=== PATIENT | female | born 1930 | race Caucasian/White ===

== ENCOUNTER 2017-01-27 19:18 | Emergency (ER) | payer OTHER ==
[~2017-01-27] VITALS: Ht 157.5 cm; Wt 73.7 kg
[2017-01-27 19:25] VITALS: BP 189/81; PULSE 68; RESP 18; TEMP 97.6; O2SAT 98
[2017-01-27] MEDS ORDERED: traMADol HCL 50 MG TAB PO ONE (19:45)
--- NOTE | 2017-01-27 19:54 | PD ---
HPI Chief Complaint: Fall Time Seen by Provider: 19:33 Travel History International Travel<30 days: No Contact w/Intl Traveler<30days: No Traveled to known affect area: No History of Present Illness HPI 86-year-old female here for evaluation of left wrist and left knee pain after mechanical fall that occurred about 45 minutes prior to arrival. The patient arrives via private vehicle with her family. She was in the garage doing laundry when she tripped and fell to the ground. She denies head injury or LOC. She is mainly having pain in her left wrist, but also has some pain in her left knee. She was able to ambulate after the fall. She denies neck or back pain. No pain in any other joint or extremity. Left wrist pain is moderate, constant, worse with movement and palpation. She is right-handed. PFSH Past Medical History Hx Anticoagulant Therapy: Yes Cardiovascular Problems: Yes High Cholesterol: Yes Diabetes: Yes Patient Takes Glucophage: No Diminished Hearing: No GERD: Yes Hiatal Hernia: Yes Hypertension: Yes Tetanus Vaccination: < 5 Years Influenza Vaccination: Yes ?: Not Menopausal: Yes Past Surgical History Cardiac Surgery: Yes (carotid artery) Cholecystectomy: Yes Hysterectomy: Yes Tonsillectomy: Yes Social History Alcohol Use: No Tobacco Use: No Substance Use: No Allergies-Medications (Allergen,Severity, Reaction): Coded Allergies: No Known Allergies (Unverified , 01/27/17) Reported Meds & Prescriptions Reported Meds & Active Scripts Active Active Prescriptions or Reported Medications Unobtainable Review of Systems Except as stated in HPI: all other systems reviewed are Neg Physical Exam Narrative GENERAL: Well-developed, well-nourished, comfortable, no acute distress. GCS 15. SKIN: Focused skin assessment warm/dry. Mild ecchymosis to left distal wrist. HEAD: Atraumatic. Normocephalic. EYES: Pupils equal and round. No scleral icterus. No injection or drainage. ENT: Mucous membranes pink and moist. NECK: Trachea midline. No JVD. No midline vertebral step-off or tenderness. CARDIOVASCULAR: Regular rate and rhythm. Bilateral distal radial pulses are brisk and equal. MUSCULOSKELETAL: Left distal radius with mild deformity/edema with moderate tenderness with mild overlying ecchymosis. Left hand is without deformity, without tenderness, with normal range of motion. Left anterior knee with mild tenderness without obvious deformity, with normal range of motion. Rest of her joints and extremities are without deformity, without tenderness, with normal range of motion. No midline thoracic spine or lumbar spine step-off or tenderness. NEUROLOGICAL: Awake and alert. No obvious cranial nerve deficits. Motor grossly within normal limits. Normal speech. PSYCHIATRIC: Appropriate mood and affect; insight and judgment normal. Data Data Last Documented VS Vital Signs Date Time Temp Pulse Resp B/P Pulse Ox O2 Delivery O2 Flow Rate FiO2 01/27/17 19:34 Room Air 01/27/17 19:25 97.6 68 18 189/81 98 Orders Tramadol (Ultram) (01/27/17 19:45) Hand, Complete ([id number]) (01/27/17 ) Wrist, Complete ([id number]) (01/27/17 ) Knee, Complete (4vws) (01/27/17 ) Splint Or Brace Apply/Monitor (01/27/17 20:34) MDM Medical Decision Making Medical Screen Exam Complete: Yes Emergency Medical Condition: Yes Differential Diagnosis Left wrist fracture versus contusion versus sprain, left knee fracture versus contusion Narrative Course Left wrist x-ray: Mild deformity of the distal radius consistent with a mild fracture deformity of indeterminate age. Osteopenia and degenerative changes. Left hand x-ray: Mild deformity of the distal radius most consistent with a fracture deformity of indeterminate age. Osteopenia and degenerative change. Left knee x-ray: No acute fracture or malalignment. Anterior soft tissue swelling. Osteoarthritis. The patient and the patient's family were made aware of all findings per she is resting comfortably. Tramadol has helped significantly with her pain. Her left forearm will be placed in a volar splint. She is from [place] and is returning to [place] in 3 days. I've instructed her to follow up with her primary care physician as soon as she gets back to [facility] she can be referred to an orthopedic surgeon to follow-up within the next week. She was informed on when to return to the emergency department. With the patient and the patient 's family verbalized understanding and agreement with plan. Diagnosis Primary Impression: Closed fracture of left distal radius Qualified Code: S52.502A - Closed fracture of distal end of left radius, unspecified fracture morphology, initial encounter Referrals: Orthopedist 3 days Primary Care Physician 3 days Additional Instructions: Follow-up with your primary care physician this week when you return to [place]. Follow-up with an orthopedic surgeon this week. Return to the emergency department forcing symptoms or any other concerns. Scripts Tramadol 50 Mg Tab50 Mg PO Q6H PRN (PAIN) #20 TAB Ref 0 Prov:Abbe Bonilla MD 01/27/17 Disposition: 01 DISCHARGE HOME Condition: Stable Abbe Bonilla MD Jan 27, 2017 19:54
--- NOTE | 2017-01-27 20:20 | RADRPT ---
EXAM DATE/TIME: 01/27/2017 19:56 [facility] COMPARISON: WRIST LEFT COMPLETE ([id number]), January 27, 2017, 19:58. INDICATIONS : Trauma, fall. MEDICAL HISTORY : None. SURGICAL HISTORY : None. ENCOUNTER: Initial ACUITY: 1 day PAIN SCORE: 4/10 LOCATION: Left hand. FINDINGS: AP, lateral and oblique views of the left hand were obtained and demonstrate diffuse osteopenia. Dege nerative changes are noted greatest involving the first metacarpal carpal joint with joint space loss , sclerosis and hypertrophic change. Milder degenerative changes noted in the carpus interphalangeal joints. There is mild deformity of the proximal radius. 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 There is soft tissue swelling surrounding the wrist. CONCLUSION: 1. Mild deformity of the distal radius most consistent with a fracture deformity of indeterminate age . 2. Osteopenia and degenerative change. Migue Palacios MD on January 27, 2017 at 20:15 Board Certified Radiologist. This report was verified electronically.
--- NOTE | 2017-01-27 20:21 | RADRPT ---
EXAM DATE/TIME: 01/27/2017 19:58 [facility] COMPARISON: No previous studies available for comparison. INDICATIONS : Trauma, fall. MEDICAL HISTORY : None. SURGICAL HISTORY : None. ENCOUNTER: Initial ACUITY: 1 day PAIN SCORE: 3/10 LOCATION: Left wrist. FINDINGS: AP, lateral and oblique views of left wrist were obtained and demonstrate mild deformity of the dista l radius with patchy lucency and sclerosis. There is mild distortion of the normal trabecular pattern . A distinct cortical break is not visualized. There are degenerative changes in the carpus with scle rosis and joint space loss greatest involving the first metacarpocarpal joint. Chondrocalcinosis is n oted in the triangle fibrocartilage. The distal ulna is intact. There is soft tissue swelling surroun ding the carpus and distal radius. CONCLUSION: 1. Mild deformity of the distal radius most consistent with a mild fracture deformity of indeterminat e age. 2. Osteopenia and degenerative change. Migue Palacios MD on January 27, 2017 at 20:18 Board Certified Radiologist. This report was verified electronically.
--- NOTE | 2017-01-27 20:22 | RADRPT ---
EXAM DATE/TIME: 01/27/2017 19:46 [facility] COMPARISON: No previous studies available for comparison. INDICATIONS : Trauma, fall. MEDICAL HISTORY : None. SURGICAL HISTORY : None. ENCOUNTER: Initial ACUITY: 1 day PAIN SCORE: 4/10 LOCATION: Left knee. FINDINGS: A standard 4 view examination of the left knee was obtained and demonstrates no acute fracture or mal alignment. There is soft tissue swelling over the patella and evidence of a joint effusion. There are degenerative changes greatest in the medial compartment with joint space loss and sclerosis. CONCLUSION: 1. No acute fracture or malalignment. 2. Anterior soft tissue swelling. 3. Osteoarthritis. Migue Palacios MD on January 27, 2017 at 20:19 Board Certified Radiologist. This report was verified electronically.
[2017-01-27] MEDS ORDERED: TRAM50TA PO (20:39)
[2017-01-27 20:47] VITALS: BP 180/76; RESP 18
[2017-01-28] MEDS ORDERED: LEVO50TA4 PO (20:50)
[2017-01-28] MEDS ORDERED: CARV3.12 PO (20:50)
[2017-01-28] MEDS ORDERED: AMIO200T PO (20:50)
[2017-01-28] MEDS ORDERED: CHOL1CAP34 PO (20:50)
[2017-01-28] MEDS ORDERED: BRIL90TA PO (20:50)
[2017-01-28] MEDS ORDERED: LISI10TA3 PO (20:50)
[2017-01-28] MEDS ORDERED: PANT40TA3 PO (20:50)
[2017-01-28] MEDS ORDERED: ATOR1TAB18 PO (20:50)
[2017-01-28] MEDS ORDERED: ASPI81CH CHEW (20:50)
[2017-01-28] MEDS ORDERED: NORC5TAB PO (21:09)
[2017-01-28] MEDS ORDERED: PERC5TAB12 PO (21:12)
[2017-01-28] MEDS ORDERED: WHEEMIS3 (21:32)
== END 2017-01-27 20:58 | disposition home or self-care (01) ==
LOC: PHED 19:18
DX: S52.502A Unspecified fracture of the lower end of left radius, initial encounter for closed fracture (principal); W01.0XXA Fall on same level from slipping, tripping and stumbling without subsequent striking against object, initial encounter; Z79.01 Long term (current) use of anticoagulants; E78.00 Pure hypercholesterolemia, unspecified; E11.9 Type 2 diabetes mellitus without complications; I10 Essential (primary) hypertension
CPT/HCPCS: 29125; 73110; 73130; 73564

== ENCOUNTER 2017-01-28 20:19 | Emergency (ER) | payer OTHER ==
[~2017-01-28 20:19] MED LIST: TRAM50TA PO
[2017-01-28 20:34] VITALS: BP 188/76; PULSE 63; RESP 20; TEMP 97.4; O2SAT 98
[2017-01-28] MEDS ORDERED: LISI10TA3 PO (20:50)
[2017-01-28] MEDS ORDERED: LEVO50TA4 PO (20:50)
[2017-01-28] MEDS ORDERED: PANT40TA3 PO (20:50)
[2017-01-28] MEDS ORDERED: CARV3.12 PO (20:50)
[2017-01-28] MEDS ORDERED: ASPI81CH CHEW (20:50)
[2017-01-28] MEDS ORDERED: CHOL1CAP34 PO (20:50)
[2017-01-28] MEDS ORDERED: ATOR1TAB18 PO (20:50)
[2017-01-28] MEDS ORDERED: AMIO200T PO (20:50)
[2017-01-28] MEDS ORDERED: BRIL90TA PO (20:50)
--- NOTE | 2017-01-28 21:04 | PD ---
HPI Chief Complaint: Musculoskeletal Complaint Time Seen by Provider: 20:45 Travel History International Travel<30 days: No Contact w/Intl Traveler<30days: No Traveled to known affect area: No History of Present Illness HPI 86-year-old female presents to the emergency department with her family with chief complaint of left wrist pain status post fall yesterday. Patient was seen and treated in the emergency department for a minor distal radius fracture. At the time she was given Ultram in the ER and a prescription at discharge. The patient and family report that the Ultram never worked for the pain and she's been in pain since the event. He did not endorse any worsening of pain that just reports the pain has been constant since the injury. She denies numbness or tingling within the extremity. She reports that she has taken oxycodone in the past. Family is requesting something along those lines to treat her pain. PFSH Past Medical History Hx Anticoagulant Therapy: Yes (YES ) Cardiovascular Problems: Yes High Cholesterol: Yes Diabetes: Yes Patient Takes Glucophage: No Diminished Hearing: No GERD: Yes Hiatal Hernia: Yes Hypertension: Yes Menopausal: Yes Past Surgical History Cardiac Surgery: Yes (carotid artery) Cholecystectomy: Yes Hysterectomy: Yes Tonsillectomy: Yes Social History Alcohol Use: No Tobacco Use: No Substance Use: No Allergies-Medications (Allergen,Severity, Reaction): Coded Allergies: No Known Allergies (Unverified , 01/28/17) Reported Meds & Prescriptions Reported Meds & Active Scripts Active Percocet (Oxycodone-Acetaminophen) 5-325 mg Tab 1 Tab PO Q6H PRN Tramadol (Tramadol HCl) 50 Mg Tab 50 Mg PO Q6H PRN Reported Vitamin D3 (Cholecalciferol) 50,000 Unit Cap 50,000 Units PO Q7D Lisinopril 10 Mg Tab 10 Mg PO DAILY Carvedilol 3.125 Mg Tab 3.125 Mg PO BID Amiodarone (Amiodarone HCl) 200 Mg Tab 200 Mg PO DAILY Brilinta (Ticagrelor) 90 Mg Tab 90 Mg PO BID Pantoprazole (Pantoprazole Sodium) 40 Mg Tab 40 Mg PO DAILY Atorvastatin (Atorvastatin Calcium) 80 Mg Tab 80 Mg PO HS Levothyroxine (Levothyroxine Sodium) 50 Mcg Tab 50 Mcg PO DAILY Aspirin 81 Mg Chew 81 Mg CHEW DAILY Review of Systems Except as stated in HPI: all other systems reviewed are Neg Musculoskeletal: Positive: Other (left wrist pain) Physical Exam Narrative GENERAL: Well-nourished, well-developed patient. SKIN: Focused skin assessment warm/dry. HEAD: Normocephalic. EYES: No scleral icterus. No injection or drainage. NECK: Supple, trachea midline. No JVD or lymphadenopathy. CARDIOVASCULAR: Regular rate and rhythm without murmurs, gallops, or rubs. RESPIRATORY: Breath sounds equal bilaterally. No accessory muscle use. GASTROINTESTINAL: Abdomen soft, non-tender, nondistended. MUSCULOSKELETAL: No cyanosis, or edema. Left upper extremity: Volar splint in place. Patient has brisk cap refill. The extremity is warm color is homogenous with the opposing extremity. She can move the fingers freely. No evidence of compartment syndrome. Data Data Last Documented VS Vital Signs Date Time Temp Pulse Resp B/P Pulse Ox O2 Delivery O2 Flow Rate FiO2 01/28/17 20:34 97.4 63 20 188/76 98 Orders Oxycodone-Acetamin 5-325 Mg (Percocet (01/28/17 21:15) MDM Medical Decision Making Medical Screen Exam Complete: Yes Emergency Medical Condition: Yes Differential Diagnosis Left distal radius fracture pain not controlled on tramadol Narrative Course 86-year-old female presents emergency Department with her family for evaluation of left wrist pain. Patient was seen and evaluated for fall yesterday diagnosed with mild distal radius fracture and was discharged home on tramadol. Patient and family report tramadol has not controlled the pain. They are requesting something stronger for the pain. They report she is taking oxycodone in the past. The extremity was examined there is no evidence of compartment syndrome. Her pain is simply not controlled. Discussed the risk of pain medication which include risk of fall and injury. They verbalize understanding. They report that they help with all her ADLs. Patient will be given a prescription for Percocet. Diagnosis Primary Impression: Wrist pain Qualified Code: M25.532 - Wrist pain, left Referrals: Orthopedist Additional Instructions: Take the pain medication as prescribed. Follow-up with orthopedic doctor. Continue to keep the arm in the sling. Return to the emergency department if he has new or worsening symptoms. Scripts Wheelchair 1 Mis Mis #1 EA .ROUTE DIRECTED Ref 0 Prov:Teodora Lancaster 01/28/17 Oxycodone-Acetaminophen (Percocet)5-325 mg Tab1 Tab PO Q6H PRN (PAIN) #15 TAB Ref 0 Prov:Teodora Lancaster 01/28/17 Disposition: 01 DISCHARGE HOME Condition: Stable Teodora Lancaster Jan 28, 2017 21:04
[2017-01-28] MEDS ORDERED: NORC5TAB PO (21:09)
[2017-01-28] MEDS ORDERED: PERC5TAB12 PO (21:12)
[2017-01-28] MEDS ORDERED: oxyCODONE/ACETAMINOPHEN 5 MG/325 MG TAB PO ONE (21:15)
[2017-01-28] MEDS ORDERED: WHEEMIS3 (21:32)
== END 2017-01-28 21:40 | disposition home or self-care (01) ==
LOC: PHEFT 20:19
DX: S52.502D Unspecified fracture of the lower end of left radius, subsequent encounter for closed fracture with routine healing (principal); W19.XXXD Unspecified fall, subsequent encounter; E11.9 Type 2 diabetes mellitus without complications; I10 Essential (primary) hypertension; K21.9 Gastro-esophageal reflux disease without esophagitis; E78.00 Pure hypercholesterolemia, unspecified; Z79.82 Long term (current) use of aspirin
CPT/HCPCS: 99283